=== PATIENT | male | born 1970 | race Caucasian/White ===

== ENCOUNTER 2018-11-14 17:41 | Emergency (ER) | payer OTHER ==
--- NOTE | 2018-11-14 18:00 | ED ---
HPI Chest Pain - HPI Summary HPI Summary: 48 yr old male with chest pain. Onset two days ago. Worse with breathing. pain associated with SOB. Denies leg pain or swelling. He has history of diabetes, htn, smoking. No other complaints. He took two full size 325 mg aspirins earlier - History of Current Complaint Chief Complaint: UCChestPain Time Seen by Provider: 11/14/18 17:47 Pain Intensity: 8 - Allergy/Home Medications Allergies/Adverse Reactions: Allergies Allergy/AdvReac Type Severity Reaction Status Date / Time acetaminophen Allergy Vomiting Verified 11/14/18 17:56 [From Tylenol-Codeine #3] codeine Allergy Vomiting Verified 11/14/18 17:56 [From Tylenol-Codeine #3] PMH/Surg Hx/FS Hx/Imm Hx Endocrine/Hematology History: Reports: Hx Diabetes - Type 1 Cardiovascular History: Reports: Hx Hypertension - Surgical History Surgery Procedure, Year, and Place: [place]. Hernia Infectious Disease History: No Infectious Disease History: Denies: Traveled Outside the in Last 30 Days - Family History Known Family History: Positive: None - Social History Alcohol Use: Occasionally Substance Use Type: Reports: None Smoking Status (MU): Heavy Every Day Tobacco Smoker Review of Systems Constitutional: Negative Positive: Chest Pain Positive: Shortness Of Breath All Other Systems Reviewed And Are Negative: Yes Physical Exam Triage Information Reviewed: Yes Vital Signs On Initial Exam: Initial Vitals Temp Pulse Resp BP Pulse Ox 98.5 F 73 18 144/109 98 11/14/18 17:50 11/14/18 17:50 11/14/18 17:50 11/14/18 17:50 11/14/18 17:50 Vital Signs Reviewed: Yes Appearance: Positive: Well-Appearing, No Pain Distress Skin: Positive: Warm, Skin Color Reflects Adequate Perfusion Head/Face: Positive: Normal Head/Face Inspection Eyes: Positive: EOMI, BERNARDO ENT: Positive: Normal ENT inspection Neck: Positive: Nontender Respiratory/Lung Sounds: Positive: Clear to Auscultation, Breath Sounds Present Cardiovascular: Positive: RRR. Negative: Murmur Abdomen Description: Positive: Nontender. Negative: Distended Musculoskeletal: Positive: Strength/ROM Intact Neurological: Positive: Sensory/Motor Intact, Alert, Oriented to Person Place, Time, CN Intact II-III, Normal Gait, Speech Normal Psychiatric: Positive: Normal - Elder Coma Scale Best Eye Response: 4 - Spontaneous Best Motor Response: 6 - Obeys Commands Best Verbal Response: 5 - Oriented Coma Scale Total: 15 Diagnostics - Vital Signs Vital Signs Temp Pulse Resp BP Pulse Ox 11/14/18 17:50 98.5 F 73 18 144/109 98 - Laboratory Lab Statement: Any lab studies that have been ordered have been reviewed, and results considered in the medical decision making process. Chest Pain Course/Dx - Course Course Of Treatment: 48 yr old male with the complaint of chest pain. INESSA Rich. To [facility] for further evaluation. - Diagnoses Provider Diagnoses: Chest pain, Hypertension Discharge - Sign-Out/Discharge Documenting (check all that apply): Patient Departure All imaging exams completed and their final reports reviewed: No Studies - Discharge Plan Condition: Good Disposition: TRANS HIGHER LVL OF CARE FAC Patient Education Materials: Chest Pain (DC) Referrals: No Primary Care Phys,NOPCP [Primary Care Provider] - - Billing Disposition and Condition Condition: GOOD Disposition: Trans Higher Lvl of Care Fac
[2018-11-14 18:16] VITALS: BP 119/60
== END 2018-11-14 18:14 | disposition short-term general hospital (02) ==
LOC: UCCORT 17:41
DX: R07.9 Chest pain, unspecified (principal); I10 Essential (primary) hypertension; E10.9 Type 1 diabetes mellitus without complications; F17.290 Nicotine dependence, other tobacco product, uncomplicated; Z88.5 Allergy status to narcotic agent; Z88.8 Allergy status to other drugs, medicaments and biological substances
CPT/HCPCS: 93005; 99203; G0463

== ENCOUNTER 2019-06-25 13:39 | Emergency (ER) | payer SELFPAY ==
[2019-06-25 14:09] VITALS: BP 131/77
--- NOTE | 2019-06-25 14:37 | UC ---
General HPI - HPI Summary HPI Summary: 49-year-old male with history of type 1 diabetes presents requesting clearance to return to work after a syncopal episode that occurred while at work on 2019. Reports that she began feeling like his blood sugar was low and was trying to get to the vending machine to get something to eat when he lost consciousness. States this was witnessed on the security cameras at work. He was told the episode lasted approximately 30 seconds and that it appeared as if he was having some seizure-like activity. He states after he regained consciousness he was feeling "foggy" but was able to get a grape soda from the ending machine and after drinking half a can began feeling better. States he did hit the side of his head next to his left eye on a coffee machine that was nearby. He is also complaining of some left hip pain. Reports he has been able to walk and bear weight but with discomfort. EMS did respond and his initial glucose was 70. States he ate some food and they rechecked 10 minutes later and it was 115. Patient declined transport to the hospital at that time. Denies headache, visual disturbances, dizziness, slurred or difficulty speaking, weakness, numbness, or tingling of the extremities, loss of bowel or bladder control, chest pain, palpitations, shortness of breath, diaphoresis, nausea, or vomiting. - History of Current Complaint Chief Complaint: UCLowerExtremity Stated Complaint: fall/head r thip Time Seen by Provider: 06/25/19 14:28 Hx Obtained From: Patient Pain Intensity: 7 - Allergy/Home Medications Allergies/Adverse Reactions: Allergies Allergy/AdvReac Type Severity Reaction Status Date / Time acetaminophen Allergy Vomiting Verified 06/25/19 14:00 [From Tylenol-Codeine #3] codeine Allergy Vomiting Verified 06/25/19 14:00 [From Tylenol-Codeine #3] Home Medications: Home Medications lisinopriL [Lisinopril] 40 mg PO DAILY 06/25/19 [History Confirmed 06/25/19] tiZANidine TAB* [Zanaflex TAB*] 1 tab PO TID PRN 06/25/19 [History Confirmed 12/07] traZODone TAB* [Desyrel TAB*] 1 tab PO DAILY 06/25/19 [History Confirmed ] PMH/Surg Hx/FS Hx/Imm Hx Endocrine History: Diabetes Cardiovascular History: Hypertension - Surgical History Surgical History: Yes Surgery Procedure, Year, and Place: appendectomy. Hernia - Family History Known Family History: Negative: Seizure Disorder - Social History Occupation: Employed Full-time Lives: With Family Alcohol Use: Occasionally Substance Use Type: None Smoking Status (MU): Heavy Every Day Tobacco Smoker Amount Used/How Often: 2/3 ppd Review of Systems All Other Systems Reviewed And Are Negative: Yes Constitutional: Negative: Fever, Chills Skin: Positive: Bruising Eyes: Negative: Blurred Vision, Diplopia, Photophobia Respiratory: Negative: Shortness Of Breath, Cough Cardiovascular: Negative: Palpitations, Chest Pain Gastrointestinal: Negative: Abdominal Pain, Vomiting, Nausea Genitourinary: Positive: Negative Musculoskeletal: Positive: Arthralgia. Negative: Decreased ROM Neurological: Negative: Headache, Weakness, Paresthesia, Numbness Is Patient Immunocompromised?: No Physical Exam - Summary Physical Exam Summary: GENERAL APPEARANCE: Well developed, well nourished, alert and cooperative, and appears to be in no acute distress. HEAD: Normocephalic. Mild ecchymosis noted to the left restorationism immediately lateral to the left eye. EYES: Conjunctiva clear. No drainage. PERRL, EOM intact. Vision is grossly intact. EARS: External auditory canals and tympanic membranes clear, hearing grossly intact. NOSE: No nasal discharge. THROAT: Pharynx normal No tonsilar inflammation, swelling, exudate, or lesions. Uvula midline. NECK: Neck supple, non-tender. Full ROM. CARDIAC: Normal S1 and S2. No S3, S4 or murmurs. Rhythm is regular. There is no peripheral edema, cyanosis or pallor. Extremities are warm and well perfused. Capillary refill is less than 2 seconds. Peripheral pulses intact. LUNGS: Clear to auscultation without rales, rhonchi, wheezing or diminished breath sounds. ABDOMEN: Positive bowel sounds. Soft, nondistended, nontender. No guarding or rebound. No masses or hepatosplenomegally. MUSKULOSKELETAL: Normal muscular development. Limping gait. BACK: No spinal deformity or tenderness, decreased range of motion or muscular spasm. EXTREMITIES: Tenderness over the lateral right hip. Full ROM. Circulation and sensation intact. NEUROLOGICAL: CN II-XII intact. Strength and sensation symmetric and intact throughout. Reflexes 2+ throughout. Cerebellar testing normal. SKIN: Skin normal color, texture and turgor. Triage Information Reviewed: Yes Vital Signs: Initial Vital Signs Temp 98.4 F 06/25/19 14:03 Pulse 85 06/25/19 14:03 Resp 14 06/25/19 14:03 BP 131/77 06/25/19 14:03 Pulse Ox 97 06/25/19 14:03 Vital Signs Reviewed: Yes Course/Dx - Course Course Of Treatment: 49-year-old male with history of type 1 diabetes presents requesting clearance to return to work after a syncopal episode that occurred while at work on 2019. Reports that she began feeling like his blood sugar was low and was trying to get to the vending machine to get something to eat when he lost consciousness. States this was witnessed on the security cameras at work. He was told the episode lasted approximately 30 seconds and that it appeared as if he was having some seizure-like activity. He states after he regained consciousness he was feeling "foggy" but was able to get a grape soda from the ending machine and after drinking half a can began feeling better. States he did hit the side of his head next to his left eye on a coffee machine that was nearby. He is also complaining of some left hip pain. Reports he has been able to walk and bear weight but with discomfort. EMS did respond and his initial glucose was 70. States he ate some food and they rechecked 10 minutes later and it was 115. Patient declined transport to the hospital at that time. Denies headache, visual disturbances, dizziness, slurred or difficulty speaking, weakness, numbness, or tingling of the extremities, loss of bowel or bladder control, chest pain, palpitations, shortness of breath, diaphoresis, nausea, or vomiting. Afebrile. Vital signs stable. Patient was neurologically intact and noted to have mild ecchymosis to the left restorationism immediately lateral to the left eye, tenderness over the lateral right hip with full ROM and intact circulation and sensation, and otherwise unremarkable exam. I discussed with the patient that while his history sounds consistent with a hypoglycemic episode I am unable to rule out other potential causes for his syncopal episode at this time as we do not have CT available. I have recommended that he follow up with his primary care provider or go to the emergency room for immediate evaluation if he is unable to see his primary to which she is agreeable. He is electing to transport via private vehicle with his driving. - Differential Dx - Multi-Symptom Differential Diagnoses: CVA, Other - Seizure, hypoglycemia, arrythmia, fracture , dislocation, contusion - Diagnoses Provider Diagnosis: Syncope, Injury of right hip Discharge ED - Sign-Out/Discharge Documenting (check all that apply): Patient Departure All imaging exams completed and their final reports reviewed: No Studies - Discharge Plan Condition: Stable Disposition: HOME Patient Education Materials: Syncope (ED) Referrals: No Primary Care Phys,NOPCP [Primary Care Provider] - Additional Instructions: We are unable to adequately evaluate you for your syncopal (loss of consciousness) episode at this time as we do not have CT available. I would recommend you follow-up with your primary care provider or go directly to the emergency room at this time for evaluation. - Billing Disposition and Condition Condition: STABLE Disposition: Home
== END 2019-06-25 14:53 | disposition home or self-care (01) ==
LOC: UCCORT 13:39
DX: R55 Syncope and collapse (principal); S79.911A Unspecified injury of right hip, initial encounter; E10.9 Type 1 diabetes mellitus without complications; I10 Essential (primary) hypertension; F17.210 Nicotine dependence, cigarettes, uncomplicated; Z79.899 Other long term (current) drug therapy; Z88.5 Allergy status to narcotic agent; X58.XXXA Exposure to other specified factors, initial encounter; Y92.9 Unspecified place or not applicable
CPT/HCPCS: 99212; G0463